=== PATIENT | male | born 1985 | race Hispanic/Latino ===

== ENCOUNTER 2024-12-12 15:39 | Emergency (ER) | payer OTHER, SELFPAY ==
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
[2024-12-12 15:46] VITALS: BP 129/83; PULSE 100; RESP 16; TEMP 37; O2SAT 99
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
[2024-12-12 17:25] VITALS: BP 120/76; PULSE 88; RESP 18; TEMP 36.6; O2SAT 97
== END 2024-12-12 17:27 | disposition home or self-care (01) ==
LOC: ANHED 17:13
PROVIDERS: Emergency Provider Emergency Medicine
DX: S20.219A Contusion of unspecified front wall of thorax, initial encounter (principal); V89.2XXA Person injured in unspecified motor-vehicle accident, traffic, initial encounter
CPT/HCPCS: 71046; 99283